=== PATIENT | female | born 1950 | race Caucasian/White ===

== ENCOUNTER → 2021-10-25 | Outpatient (CLI) | payer OTHER, BC ==
[~2021-10-25] MED LIST: CIPR500S2 PO; HYDR1CAP2 PO; PROP1TAB77 PO
== END ==
LOC: GIR 20:16
PROVIDERS: ATTEND Internal Medicine
DX: Z01.89 Encounter for other specified special examinations (principal)
CPT/HCPCS: 84145

== ENCOUNTER → 2021-11-09 | Outpatient (CLI) | payer BC, OTHER ==
--- NOTE | 2021-11-09 17:17 | Diagnostic Imaging Report ---
INDICATION: Bilateral kidney stones. COMPARISON: 06/08/2010. FINDINGS: Two views of the abdomen demonstrate increasing and/or new bilateral nephrolithiasis. The largest on the right is 13 mm, on the left 11 mm. The measured stone on the right may be in the right renal pelvis. There are calcifications in the inferior pole of both kidneys. IMPRESSION: Bilateral renal calculi. Dictated by: Dictated on workstation # [id number]
== END ==
LOC: RAD 13:40
PROVIDERS: ATTEND Urology
DX: N20.0 Calculus of kidney (principal)
CPT/HCPCS: 74018

== ENCOUNTER 2021-11-25 05:36 | Outpatient (CLI) | payer BC ==
[~2021-11-25] VITALS: Ht 165.1 cm; Wt 113.6 kg
[2021-11-25] MEDS ORDERED: VANC125C5 PO (12:46)
[2021-11-25] MEDS ORDERED: BETH25TA2 PO (12:46)
== END 2021-11-25 12:57 | disposition home or self-care (01) ==
LOC: PREOP 05:36
PROVIDERS: ATTEND Urology
DX: Z01.818 Encounter for other preprocedural examination (principal)

== ENCOUNTER 2021-11-29 06:00 | Day surgery (SDC) | payer BC ==
[~2021-11-29] VITALS: Ht 165 cm; Wt 113.6 kg
[2021-11-29] VITALS (10 sets, daily range): BP systolic 133–176; BP diastolic 61–99
[~2021-11-29 06:00] MED LIST changes: +BETH25TA2 PO; +VANC125C5 PO
[2021-11-29] MEDS ORDERED: cefTRIAXone 1 GM PRE-MIX 50 ML IV ONE (06:15)
[2021-11-29] MEDS: LACTATED RINGERS 1,000 ML IV PRN ×2 (07:05→09:25)
--- NOTE | 2021-11-29 07:06 | Progress Note-Pre Operative ---
Pre-Operative Progress Note H&P Reviewed The H&P was reviewed, patient examined and no changes noted. Date Seen by Provider: Nov 29, 2021 Time Seen by Provider: 07:06 Date H&P Reviewed: Nov 29, 2021 Time H&P Reviewed: 07:06 Pre-Operative Diagnosis: BILATERAL REANL STONES MALLORIE GARRETT MD Nov 29, 2021 07:06
--- NOTE | 2021-11-29 07:15 | Progress Note-Post Operative ---
Post-Operative Progess Note Surgeon (s)/Physical Therapy Aides Teacher (s) Surgeon MALLORIE GARRETT MD Physical Therapy Aides Teacher: NONE Pre-Operative Diagnosis BILATERAL REANL STONES Post-Operative Diagnosis SAME Procedure & Operative Findings Date of Procedure 11/29/21 Procedure Performed/Findings RT ESWL Anesthesia Type GENERAL Estimated Blood Loss Estimated blood loss (mL): NONE Specimens/Packing Specimens Removed NONE Packing: NONE MALLORIE GARRETT MD Nov 29, 2021 07:15
--- NOTE | 2021-11-29 07:17 | Discharge Inst-Urology ---
Discharge Inst-Urology Reconcile Patient Problems Problems Reviewed?: Yes Final Diagnosis BILATERAL RENAL STONES Patient Instructions/Follow Up Plan/Assessment/Instructions Please make appointment to been seen in office Tuesday 12/12, KUB prior to it. KUB on way home Post ESWL instructions Increase oral fluids for 48 hours and then as needed. Diet and Activity as tolerated. If questions or concerns contact your physician Or seek help at emergency department. MALLORIE GARRETT MD Nov 29, 2021 07:17
--- NOTE | 2021-11-29 07:17 | Diagnostic Imaging Report ---
ABDOMEN/KUB 1VIEW INDICATION: Bilateral UPJ stone COMPARISON: 11/09/2021 TECHNIQUE: AP view of the abdomen FINDINGS: No change in the bilateral proximal ureteral stones. The right-sided stomach measures approximately 13 mm and the left measures approximately 11 mm. There is another stone more inferiorly on the left that is most likely within the lower pole left kidney. Cholecystectomy clips are noted. Nonobstructive bowel gas pattern. Stable regional skeleton. IMPRESSION: Bilateral renal/proximal ureteral stones are unchanged since 11/09/2021. Dictated by: Dictated on workstation # [id number]
[2021-11-29] MEDS ORDERED: proPOfol 200 MG/20 ML (DIPRIVAN) VIAL IV ONE (08:08)
[2021-11-29] MEDS ORDERED: ONDANSETRON 4 MG/2 ML (SDV) Z0FRAN ONE (08:08)
[2021-11-29] MEDS ORDERED: LIDOCAINE PF 2% 5 ML (XYLOCAINE) VIAL ONE (08:08)
[2021-11-29] MEDS ORDERED: fentaNYL INJ 100 MCG/2 ML AMP ONE (08:08)
[2021-11-29] MEDS ORDERED: MIDAZOLAM 2 MG/2 ML (VERSED) VIAL ONE (08:08)
[2021-11-29] MEDS ORDERED: SEVOFLURANE (ULTANE) 15 ML INHAL SOLN ONE ×2 (08:08→10:02)
[2021-11-29] MEDS ORDERED: PHENYLEPHRINE 100 MCG/ML 10 ML (ANESTHESIA) SYR ONE (08:29)
[2021-11-29] MEDS ORDERED: KETOROLAC 30 MG/ML VIAL ONE (08:38)
[2021-11-29] MEDS ORDERED: FUROSEMIDE 40 MG/4 ML INJ (LASIX) ONE (08:38)
[2021-11-29] MEDS ORDERED: ONDANSETRON 4 MG/2 ML (SDV) Z0FRAN IVP PRN (09:15)
[2021-11-29] MEDS ORDERED: HYDROmorphone 2 MG/ML VIAL (DILAUDID) IV ONE (09:15)
[2021-11-29] MEDS ORDERED: TMSL.4C PO (09:52)
[2021-11-29] MEDS ORDERED: KETO10TA PO (09:52)
[2021-11-29] MEDS ORDERED: NITR-65 PO (09:52)
--- NOTE | 2021-11-29 10:56 | Diagnostic Imaging Report ---
INDICATION: Kidney stone. COMPARISON: 11/29/2021 at 6:26 AM. FINDINGS: Two views of the abdomen demonstrate two visualized renal calculi on the left and a faint calculus in the inferior pole of the right kidney. There is no unexpected radiopaque foreign body. IMPRESSION: Renal calculi. Dictated by: Dictated on workstation # [id number]
--- NOTE | 2021-11-29 13:53 | Anesthesia-General Post-Op ---
General Patient Condition Mental Status/LOC: Same as Preop Cardiovascular: Satisfactory Nausea/Vomiting: Absent Respiratory: Satisfactory Pain: Controlled Complications: Absent Post Op Complications Complications None Follow Up Care/Instructions Patient Instructions None needed. Anesthesia/Patient Condition Patient Condition Patient is doing well, no complaints, stable vital signs, no apparent adverse anesthesia problems. No complications reported per nursing. [place] [facility] Yes YUE FIGUEREDO CRNA Nov 29, 2021 13:53
--- NOTE | 2021-11-29 15:30 | OPERATIVE REPORT ---
DATE OF SERVICE: 11/29/2021 PREOPERATIVE DIAGNOSIS: Bilateral renal stone. POSTOPERATIVE DIAGNOSIS: Bilateral renal stone. OPERATION PERFORMED: Right ESWL. SURGEON: Ant Garrett MD ANESTHESIA: General. COMPLICATIONS: None. DESCRIPTION OF PROCEDURE: Under satisfactory general anesthesia, the patient in supine position on the ESWL table, we localized the right UVJ stone. Delivered shocks at kV of 6, a total of 2500 shocks were delivered with excellent fragmentation of the stone. The patient received 40 mg of Lasix and 30 mg of Toradol IV at the end of the procedure. She tolerated the procedure and anesthesia well and was sent to recovery room in stable condition. PLAN: We will see her back in 2 weeks at the office. If she clears the right side, we will bring her back in two weeks for the left one. Job ID: [id number] DocumentID: [id number] Dictated Date: 11/29/2021 08:52:04 Plastic Welder Date: 11/29/2021 15:29:09 Dictated By: ANT GARRETT MD
== END 2021-11-29 10:55 | disposition home or self-care (01) ==
LOC: SDC 06:00
PROVIDERS: ATTEND Urology
DX: N20.0 Calculus of kidney (principal); E66.9 Obesity, unspecified; Z87.891 Personal history of nicotine dependence; Z68.41 Body mass index [BMI] 40.0-44.9, adult
CPT/HCPCS: 74018; 87081

== ENCOUNTER → 2021-12-12 | Outpatient (CLI) | payer BC ==
[~2021-12-12] MED LIST changes: +KETO10TA PO; +NITR-65 PO; +TMSL.4C PO
--- NOTE | 2021-12-12 17:53 | Diagnostic Imaging Report ---
INDICATION: Kidney stones. Comparison with 11/29/2021 KUB. FINDINGS: KUB again demonstrates 2 dense calcifications measuring over 1 cm in the left kidney. Somewhat vague milk of calcium type calcifications noted overlying the lower pole of the right kidney. Phleboliths are noted in the pelvis. IMPRESSION: Bilateral nephrolithiasis does not appear significantly changed since previous exam. Dictated by: Dictated on workstation # [id number]
== END ==
LOC: RAD 14:08
PROVIDERS: ATTEND Urology
DX: N20.0 Calculus of kidney (principal)
CPT/HCPCS: 74018

== ENCOUNTER → 2021-12-12 | Outpatient (CLI) | payer BC | END | disposition home or self-care (01) | LOC: PREOP 05:43 | PROVIDERS: ATTEND Urology | DX: Z01.818 Encounter for other preprocedural examination (principal) ==

== ENCOUNTER 2021-12-13 05:53 | Day surgery (SDC) | payer BC ==
[~2021-12-13] VITALS: Ht 167 cm; Wt 113.6 kg
[2021-12-13] VITALS (7 sets, daily range): BP systolic 118–179; BP diastolic 61–82
[2021-12-13] MEDS ORDERED: cefTRIAXone 1 GM PRE-MIX 50 ML IV ONE (06:00)
[2021-12-13] MEDS: LACTATED RINGERS 1,000 ML IV PRN ×2 (06:56→08:12)
[2021-12-13] MEDS ORDERED: fentaNYL INJ 100 MCG/2 ML AMP ONE (07:06)
--- NOTE | 2021-12-13 07:11 | Diagnostic Imaging Report ---
INDICATION: Kidney stones COMPARISON: 12/12/2021 FINDINGS: 2 views of the abdomen demonstrate bilateral nephrolithiasis. The bowel gas pattern is normal. There is no large pocket of free air. Cholecystectomy clips are present. IMPRESSION: Nephrolithiasis. Dictated by: Dictated on workstation # [id number]
--- NOTE | 2021-12-13 07:25 | Progress Note-Pre Operative ---
Pre-Operative Progress Note H&P Reviewed The H&P was reviewed, patient examined and no changes noted. Date Seen by Provider: Dec 13, 2021 Time Seen by Provider: 07:25 Date H&P Reviewed: Dec 13, 2021 Time H&P Reviewed: 07:25 Pre-Operative Diagnosis: LT RENAL STONES MALLORIE GARRETT MD Dec 13, 2021 07:25
[2021-12-13] MEDS ORDERED: KETOROLAC 30 MG/ML VIAL ONE (07:44)
[2021-12-13] MEDS ORDERED: SEVOFLURANE (ULTANE) 15 ML INHAL SOLN ONE (07:44)
[2021-12-13] MEDS ORDERED: FUROSEMIDE 40 MG/4 ML INJ (LASIX) ONE (07:44)
[2021-12-13] MEDS ORDERED: ONDANSETRON 4 MG/2 ML (SDV) Z0FRAN ONE (07:44)
[2021-12-13] MEDS ORDERED: LIDOCAINE PF 2% 5 ML (XYLOCAINE) VIAL ONE (07:44)
[2021-12-13] MEDS ORDERED: proPOfol 200 MG/20 ML (DIPRIVAN) VIAL IV ONE (07:44)
[2021-12-13] MEDS ORDERED: DESFLURANE (SUPRANE) 15 ML INHAL SOLN ONE (07:47)
--- NOTE | 2021-12-13 07:48 | Progress Note-Post Operative ---
Post-Operative Progess Note Surgeon (s)/Sweep Molder (s) Surgeon MALLORIE GARRETT MD Sweep Molder: NONE Pre-Operative Diagnosis LT RENAL STONES Post-Operative Diagnosis SAME Procedure & Operative Findings Date of Procedure 12/13/21 Procedure Performed/Findings LT ESWL Anesthesia Type GENERAL Estimated Blood Loss Estimated blood loss (mL): NONE Specimens/Packing Specimens Removed NONE Packing: NONE MALLORIE GARRETT MD Dec 13, 2021 07:48
--- NOTE | 2021-12-13 07:50 | Discharge Inst-Urology ---
Discharge Inst-Urology Reconcile Patient Problems Problems Reviewed?: Yes Final Diagnosis LT RENAL STONES Patient Instructions/Follow Up Plan/Assessment/Instructions Please make appointment to been seen in office Tuesday 12/26, KUB prior to it. KUB on way home Post ESWL instructions Increase oral fluids for 48 hours and then as needed. Diet and Activity as tolerated. If questions or concerns contact your physician Or seek help at emergency department. MALLORIE GARRETT MD Dec 13, 2021 07:50
[2021-12-13] MEDS ORDERED: TMSL.4C PO (09:02)
[2021-12-13] MEDS ORDERED: NITR-65 PO (09:02)
[2021-12-13] MEDS ORDERED: KETO10TA PO (09:02)
--- NOTE | 2021-12-13 09:51 | Diagnostic Imaging Report ---
INDICATION: History of nephrolithiasis. Status post ESWL. COMPARISON: Earlier same day FINDINGS: 2 frontal radiographic views of the abdomen were obtained. Extraosseous calcifications are again identified projecting over the bilateral renal shadows. Calcifications on the left appear fragmented when compared to earlier same day. No unexpected radiopaque foreign bodies are seen. Small bowel loops are nondistended. No large collection of free intraperitoneal air is identified. IMPRESSION: 1. Interval fragmentation of left-sided renal calculi consistent with provided history of status post ESWL. 2. Redemonstration right renal calculi. Dictated by: Dictated on workstation # [id number]
--- NOTE | 2021-12-13 10:21 | Anesthesia-General Post-Op ---
General Patient Condition Mental Status/LOC: Same as Preop Cardiovascular: Satisfactory Nausea/Vomiting: Absent Respiratory: Satisfactory Pain: Controlled Complications: Absent Post Op Complications Complications None Follow Up Care/Instructions Patient Instructions None needed. Anesthesia/Patient Condition Patient Condition Patient is doing well, no complaints, stable vital signs, no apparent adverse anesthesia problems. No complications reported per nursing. KRISTEL BECKWITH CRNA Dec 13, 2021 10:21
--- NOTE | 2021-12-13 11:14 | OPERATIVE REPORT ---
DATE OF SERVICE: 12/13/2021 PREOPERATIVE DIAGNOSIS: Left renal stones. POSTOPERATIVE DIAGNOSIS: Left renal stones. OPERATION PERFORMED: Left ESWL. SURGEON: Ant Garrett MD ANESTHESIA: General. COMPLICATIONS: None. DESCRIPTION OF PROCEDURE: Under satisfactory general anesthesia, the patient in supine position on the ESWL table, we first localized the left renal pelvic stone. Delivered shocks at kV of 6 and completely fragmented the stone. Then, we directed the attention to the lower pole stone and again completely fragmented it. A total of 2500 shocks were delivered. The patient received 40 mg of Lasix and 30 mg of Toradol IV at the end of the procedure. She tolerated the procedure and anesthesia well and was sent to recovery room in stable condition. CC: Dr. Staples - requested, unable to deliver. Job ID: [id number] DocumentID: [id number] Dictated Date: 12/13/2021 08:16:26 Rn Labor Delivery Date: 12/13/2021 11:13:31 Dictated By: ANT GARRETT MD
== END 2021-12-13 09:55 | disposition home or self-care (01) ==
LOC: SDC 05:53
PROVIDERS: ATTEND Urology
DX: N20.0 Calculus of kidney (principal); Z87.891 Personal history of nicotine dependence; E66.01 Morbid (severe) obesity due to excess calories; Z68.41 Body mass index [BMI] 40.0-44.9, adult
CPT/HCPCS: 74018; 87081

== ENCOUNTER → 2021-12-26 | Outpatient (CLI) | payer BC ==
--- NOTE | 2021-12-26 16:55 | Diagnostic Imaging Report ---
INDICATION: Ureteral lithiasis KUB 9:44 AM There are stones in the lower poles of both kidneys. There are calcified phleboliths in the pelvis. IMPRESSION: Bilateral nephrolithiasis Dictated by: Dictated on workstation # [id number]
== END ==
LOC: RAD 14:39
PROVIDERS: ATTEND Urology
DX: N20.2 Calculus of kidney with calculus of ureter (principal)
CPT/HCPCS: 74018

== ENCOUNTER → 2022-03-30 | Outpatient (CLI) | payer BC ==
--- NOTE | 2022-03-30 11:47 | Diagnostic Imaging Report ---
Indication: Kidney stones. Time of Exam: 10:41 AM Correlation is made with prior radiograph from 12/26/2021. Calcific densities overlie the lower poles of both kidneys, similar to prior study. Pelvic calcifications appear similar as well. Bowel gas pattern is unremarkable. There are surgical clips in the right upper quadrant. Impression: Stable KUB since 12/26/2021. There are findings suggestive of bilateral nephrolithiasis. Dictated by: Dictated on workstation # [id number]
== END ==
LOC: RAD 10:18
PROVIDERS: ATTEND Urology
DX: N20.0 Calculus of kidney (principal)
CPT/HCPCS: 74018

== ENCOUNTER → 2022-05-24 | Outpatient (CLI) | payer BC ==
--- NOTE | 2022-05-24 13:15 | Diagnostic Imaging Report ---
EXAMINATION: CT abdomen and pelvis without contrast. TECHNIQUE: Multiple contiguous axial images were obtained through the abdomen and pelvis without the use of intravenous contrast. All CT scans use one or more of the following dose optimizing techniques: automated exposure control, MA and/or KvP adjustment based on patient size and exam type or iterative reconstruction. HISTORY: RIGHT FLANK PAIN, H/O STONES COMPARISON: None available. FINDINGS: Lung bases: Bibasilar dependent atelectasis. Solid organs: The liver is normal. The gallbladder is surgically absent. There is no biliary ductal dilation. Pancreas is normal. Spleen is normal. Adrenal glands are normal. There is moderate right and mild left hydronephrosis. Multiple bilateral renal calculi are present throughout the renal collecting systems. The largest measures up to 2.1 cm on the right. There is a 0.3 cm calculus within the proximal right ureter. There is a 1.1 cm calculus within the proximal left ureter at the ureteropelvic junction. Bowel: The stomach and small bowel are normal without obstruction. The colon and appendix are normal. Peritoneum: There is no intraperitoneal free fluid or free air. No suspicious lymphadenopathy. Vasculature: Calcification of the aorta without aneurysm. Musculoskeletal: Degenerative changes of the spine without suspicious osseous lesion or compression fracture. Pelvis: The uterus and adnexa are normal. There is diffuse bladder wall thickening and surrounding inflammatory stranding. IMPRESSION: 1. Bilateral renal calculi measuring up to 2.1 cm. 2. Moderate right hydronephrosis with a 0.3 similar calculus within the proximal right ureter. 3. Mild left hydronephrosis with a 1.1 cm calculus at the left ureteropelvic junction. 4. Diffuse bladder wall thickening and surrounding inflammatory stranding. Recommend correlation with urinalysis. Dictated by: Dictated on workstation # [id number]
--- NOTE | 2022-05-24 14:17 | Diagnostic Imaging Report ---
INDICATION: Right flank pain. History of collecting system calculi. COMPARISON: CT from earlier same day FINDINGS: Frontal radiographic views of the abdomen were obtained. Multiple extraosseous calcifications are identified projecting over the bilateral renal shadows. These are partially obscured by enterocolonic debris. Calculus is also identified projecting over the right hemipelvis, but this is shown to represent a phlebolith on CT from earlier same day. No unexpected radiopaque foreign bodies are identified. Small bowel loops are nondistended. There is no large collection of free intraperitoneal air. IMPRESSION: 1. Nonobstructed small bowel gas pattern. 2. Multiple bilateral renal calculi. Dictated by: Dictated on workstation # [id number]
== END ==
LOC: RAD 12:45
PROVIDERS: ATTEND Urology
DX: N20.2 Calculus of kidney with calculus of ureter (principal); N13.30 Unspecified hydronephrosis; N32.89 Other specified disorders of bladder
CPT/HCPCS: 74018; 74176

== ENCOUNTER 2022-05-25 05:35 | Outpatient (CLI) | payer BC ==
[~2022-05-25] VITALS: Ht 165.1 cm; Wt 113.4 kg
== END 2022-05-25 11:27 | disposition home or self-care (01) ==
LOC: PREOP 05:35
PROVIDERS: ATTEND Urology
DX: Z01.818 Encounter for other preprocedural examination (principal)